=== PATIENT | female | born 1965 | race African-American/Black ===

== ENCOUNTER 2016-07-07 22:54 | Observation (INO) | payer BC ==
[~2016-07-07] VITALS: Ht 165.1 cm; Wt 97.4 kg
[~2016-07-07 22:54] MED LIST: CIPROFLOXACN500 MG PO; HYDROCHLOROT25 MG PO; METFORMIN500 MG PO; METOPROL TAR25 M1 PO; NORCO1 TA1 PO; NORVASC10 M1 PO; NORVASC10 MG PO; ULTRAM50 MG OR; ZOFRAN ODT8 MG SL
--- NOTE | 2016-07-07 22:54 | NUR ---
ARRIV[place] BY [facility] [place] TREATMENT ROOM #12. REPORTS 3/10 CHEST PAIN.
--- NOTE | 2016-07-07 23:20 | NUR ---
DR. VELEZ AT BEDSIDE TO ASSESS PT.
[2016-07-07 23:23] LABS: HEMATOCRIT 36.5 % (37.0-47.0); HEMOGLOBIN 12.2 g/dl (12.0-16.0); IMMATURE GRANULOCYTES 0.5 % (0.0-1.0); MEAN CELL VOLUME 86.1 fL CALC (80.0-100.0); MEAN CORPUSCULAR HGB 28.8 pG CALC (26.0-32.0); MEAN CORPUSCULAR HGB CONC 33.4 g/L CALC (32.0-36.0); NEUT# 6.67 thou/uL (2.00-7.15); RED BLOOD COUNT 4.24 mill/uL (4.20-5.60); RED CELL DISTRI WIDTH 14.4 % (11.5-15.5)
--- NOTE | 2016-07-07 23:25 | NUR ---
PORT CHEST IN PROGRESS.
--- NOTE | 2016-07-07 23:30 | NUR ---
PT. AMBULATORY WITH STEADY GAIT TO RESTROOM TO PROVIDE URINE SPECIMEN.
--- NOTE | 2016-07-07 23:32 | NUR ---
AMBULATORY WITH STEADY GAIT BACK TO TREATMENT ROOM FROM RESTROOM.
--- NOTE | 2016-07-07 23:38 | NUR ---
LAB AT BEDSIDE TO REDRAW PT.
[2016-07-07 23:50] LABS: URINE BILIRUBIN - DIPSTICK NEGATIVE (NEGATIVE); URINE BLOOD DIPSTICK NEGATIVE (NEGATIVE); URINE CLARITY CLEAR; URINE COLOR YELLOW; URINE GLUCOSE - DIPSTICK NEGATIVE (NEGATIVE); URINE KETONE NEGATIVE (NEGATIVE); URINE LEUK ESTERASE NEGATIVE (NEGATIVE); URINE NITRITE - DIPSTICK NEGATIVE (Negative); URINE PROTEIN - DIPSTICK NEGATIVE (NEG-TRACE); URINE SPECIFIC GRAVITY 1.025
[2016-07-08 00:01] LABS: ALBUMIN 3.8 g/dL (3.2-5.0); ALKALINE PHOSPHATASE 222 u/l (38-126); AMYLASE 64 u/l (30-110); ANION GAP 14 (6-22 (CALC)); BILIRUBIN, TOTAL 0.3 mg/dL (0.0-1.4); BUN 11 mg/dL (7-17); BUN/CREATININE RATIO 14 (12-20 (CALC)); CARBON DIOXIDE 25 mmol/l (22-30); CHLORIDE 103 mmol/l (95-108); CREATININE 0.8 mg/dL (0.5-1.0); GFR > 60 ML/MIN (>=60 (CALC)); GFR FOR AFR.AMER. > 60 ML/MIN (>=60 (CALC)); GLUCOSE 203 mg/dL (65-105); LIPASE 252 u/l (23-300); POTASSIUM 3.5 mmol/l (3.5-5.1); SGOT/AST 51 u/l (14-36); SGPT/ALT 49 u/l (9-52); SODIUM 139 mmol/l (137-146); TOTAL PROTEIN 7.3 g/dL (6.3-8.2)
--- NOTE | 2016-07-08 00:05 | NUR ---
PT. PAIN FREE AT THIS TIME. MADE AWARE.
[2016-07-08 00:13] LABS: MYOGLOBIN 21 ng/mL (0 - 62)
--- NOTE | 2016-07-08 00:30 | NUR ---
DR. VELEZ BACK AT BEDSIDE TO DISCUSS FINDINGS WITH PT.
--- NOTE | 2016-07-08 01:00 | NUR ---
REPORT TO HILLARY VICTORIA.
--- NOTE | 2016-07-08 01:25 | NUR ---
PT. TAKEN UP TO MED/SURG AT THIS TIME.
[2016-07-08 01:30] VITALS: BP 143/86
--- NOTE | 2016-07-08 01:35 | NUR ---
PT ARRIVED TO UNIT VIA WHEELCHAIR WITH LILY FLYNN. DENIES PAIN AT THIS TIME. RESPIRATIONS EVEN AND UNLABORED. ORIENTED TO ROOM. FAMILY AT BEDSIDE. PLAN OF CARE DICUSSED. PT ENCOURAGED TO VERBALIZE CONCERNS. STATES THAT SHE HAS TO GO HOME IN THE MORNING. SAFETY MEASURES IN PLACE. CALL LIGHT WITHIN REACH.
--- NOTE | 2016-07-08 04:00 | NUR ---
PT ASLEEP AT THIS TIME. NO SIGNS OF PAIN OR DISCOMFORT NOTED. MORPHINE GIVEN EARILER FOR C/O CHEST PAIN WITH GOOD EFFECT. RESPIRATIONS EVEN AND UNLABORED. SAFETY MEASURES IN PLACE. CALL LIGHT WITHIN REACH.
[2016-07-08 04:06] VITALS: BP 115/75
--- NOTE | 2016-07-08 07:00 | NUR ---
REPORT RECIEVED FROM HILLARY VICTORIA; PT RESTING IN BED; EASLIY AROUSED; PT DENIES ANY CP AT THIS TIME; TELE IN PLACE; CALL LIGHT WITHIN REACH; WILL CONTNIUE TO MONITOR
[2016-07-08 08:12] VITALS: BP 136/70
[2016-07-08] MEDS ORDERED: ATORVASTATIN CA20 MG PO (09:30)
[2016-07-08] MEDS ORDERED: BAYER CHEWABLE81 MG PO (09:30)
[2016-07-08] MEDS ORDERED: NITROSTAT0.4 MG SL (09:31)
--- NOTE | 2016-07-08 10:06 | NUR ---
Discharge instructions given. Patient verbalizes understanding of same. Discharged in stable condition via Ambulatory to Home with . All belongings sent with pt.
== END 2016-07-08 10:06 | disposition home or self-care (01) | DRG 313 ==
LOC: ENPENDDIS → ED 22:54 → ED-I 07-08 00:29 → ED 07-08 00:31 → MS2 07-08 00:32
PROVIDERS: Emergency Medicine; ADMIT Internal Medicine; ATTEND Internal Medicine
DX: R07.9 Chest pain, unspecified (principal); I25.10 Atherosclerotic heart disease of native coronary artery without angina pectoris; I10 Essential (primary) hypertension; E11.9 Type 2 diabetes mellitus without complications; I44.7 Left bundle-branch block, unspecified; Z79.84 Long term (current) use of oral hypoglycemic drugs; Z82.49 Family history of ischemic heart disease and other diseases of the circulatory system
CPT/HCPCS: G0378; J1650

== ENCOUNTER 2017-02-17 23:48 | Emergency (ER) | payer BC ==
[~2017-02-17] VITALS: Ht 165.1 cm; Wt 97.7 kg
[~2017-02-17 23:48] MED LIST changes: +AMOXICILLIN500 MG PO; +ASPIRIN LOW DOS81 M2 PO; +ATORVASTATIN CA20 MG PO; +ATORVASTATIN CA40 MG PO; +AUGMENTIN875TAB OR; +BAYER CHEWABLE81 MG PO; +HYDROCHLORO25 MG/TAB PO; +LOPRESSOR25 MG PO; +MEDDOSEPAK OR; +METO25TAB PO; +METOPROLOL SUCC25 MG PO; +NITROSTAT0.4 MG SL; +NORVASC5 M1 PO; +SUDAFED PO
[2017-02-18] MEDS ORDERED: LOSARTAN POT25 MG PO (00:22)
[2017-02-18] MEDS ORDERED: MEDDOSEPAK PO (01:28)
[2017-02-18 01:38] VITALS: BP 122/67
== END 2017-02-18 01:40 | disposition home or self-care (01) | DRG 607 ==
LOC: ED 23:48
DX: L27.2 Dermatitis due to ingested food (principal); L50.9 Urticaria, unspecified

== ENCOUNTER 2018-01-08 16:07 | Emergency (ER) | payer OTHER, BC ==
[~2018-01-08] VITALS: Ht 165.1 cm; Wt 97.0 kg
[~2018-01-08 16:07] MED LIST changes: +LOSARTAN POT25 MG PO; +MEDDOSEPAK PO
[2018-01-08 17:09] VITALS: BP 128/89
== END 2018-01-08 17:15 | disposition home or self-care (01) | DRG 951 ==
LOC: ED 16:07
DX: Z20.811 Contact with and (suspected) exposure to meningococcus (principal); Y99.0 Civilian activity done for income or pay

== ENCOUNTER 2018-12-16 11:15 | Emergency (ER) | payer BC ==
[~2018-12-16] VITALS: Ht 165.1 cm; Wt 98.6 kg
[~2018-12-16 11:15] MED LIST changes: +COZAAR100 MG PO; -LOSARTAN POT25 MG PO
[2018-12-16] MEDS ORDERED: LOPRESSOR50 M1 PO (13:45)
[2018-12-16] MEDS ORDERED: XYZAL ALLERGY 245 MG PO (13:46)
[2018-12-16] MEDS ORDERED: NITROGLYCERIN0.4 MG SL (13:48)
[2018-12-16] MEDS ORDERED: BRILINTA60 MG PO (13:48)
[2018-12-16 13:51] VITALS: BP 147/89
== END 2018-12-16 13:57 | disposition home or self-care (01) | DRG 153 ==
LOC: ED 11:15
DX: J02.9 Acute pharyngitis, unspecified (principal); R09.89 Other specified symptoms and signs involving the circulatory and respiratory systems; X58.XXXA Exposure to other specified factors, initial encounter; Y92.009 Unspecified place in unspecified non-institutional (private) residence as the place of occurrence of the external cause

== ENCOUNTER 2020-03-07 19:21 | Emergency (ER) | payer BC ==
[~2020-03-07] VITALS: Ht 165.1 cm; Wt 99.0 kg
[~2020-03-07 19:21] MED LIST changes: +BRILINTA60 MG PO; +LOPRESSOR50 M1 PO; +NITROGLYCERIN0.4 MG SL; +XYZAL ALLERGY 245 MG PO
[2020-03-07 20:20] LABS: URINE BILIRUBIN - DIPSTICK NEGATIVE (NEGATIVE); URINE BLOOD DIPSTICK TRACE-INTACT (NEGATIVE); URINE COLOR YELLOW; URINE GLUCOSE - DIPSTICK NEGATIVE (NEGATIVE); URINE KETONE NEGATIVE (NEGATIVE); URINE LEUK ESTERASE NEGATIVE (NEGATIVE); URINE NITRITE - DIPSTICK NEGATIVE (Negative); URINE PH 5.5 (4.5-8.0); URINE PROTEIN - DIPSTICK NEGATIVE (NEG-TRACE); URINE SPECIFIC GRAVITY 1.025; URINE UROBILINOGEN - DIPSTICK 0.2 E.U./dL (0.2)
[2020-03-07 20:49] LABS: HEMATOCRIT 38.9 % (37.0-47.0); HEMOGLOBIN 12.5 g/dl (12.0-16.0); IMMATURE GRANULOCYTES 0.3 % (0.0-5.0); MEAN CELL VOLUME 85.7 fL CALC (80.0-100.0); MEAN CORPUSCULAR HGB 27.5 pG CALC (26.0-32.0); MEAN CORPUSCULAR HGB CONC 32.1 g/dL CAL (32.0-36.0); NEUT# 7.06 thou/uL (2.00-7.15); RED BLOOD COUNT 4.54 mill/uL (4.20-5.60); RED CELL DISTRI WIDTH 14.6 % (11.5-15.5)
[2020-03-07 20:58] LABS: ALBUMIN 4.3 g/dL (3.2-5.0); ALKALINE PHOSPHATASE 201 u/l (38-126); AMYLASE 82 u/l (30-110); ANION GAP 9 (6-22 (CALC)); BUN 11 mg/dL (7-17); BUN/CREATININE RATIO 13 (12-20 (CALC)); CARBON DIOXIDE 30 mmol/l (22-30); CHLORIDE 105 mmol/l (95-108); CREATININE 0.9 mg/dL (0.5-1.0); GFR > 60 ML/MIN (>=60 (CALC)); GFR FOR AFR.AMER. > 60 ML/MIN (>=60 (CALC)); LIPASE 250 u/l (23-300); POTASSIUM 3.4 mmol/l (3.5-5.1); SGOT/AST 24 u/l (14-36); SODIUM 141 mmol/l (137-146); TOTAL PROTEIN 7.9 g/dL (6.3-8.2)
[2020-03-07 21:06] LABS: BILIRUBIN, TOTAL 0.5 mg/dL (0.0-1.4)
[2020-03-07 23:00] VITALS: BP 122/82
== END 2020-03-07 23:15 | disposition home or self-care (01) | DRG 392 ==
LOC: ED 19:21
PROVIDERS: Emergency Medicine
DX: R10.31 Right lower quadrant pain (principal); I10 Essential (primary) hypertension; I25.2 Old myocardial infarction
CPT/HCPCS: Q9967

== ENCOUNTER 2020-10-07 15:10 | Emergency (ER) | payer BC ==
[~2020-10-07] VITALS: Ht 165.1 cm; Wt 77.2 kg
[2020-10-07 16:02] LABS: HEMATOCRIT 42.5 % (37.0-47.0); HEMOGLOBIN 13.6 g/dl (12.0-16.0); IMMATURE GRANULOCYTES 0.2 % (0.0-5.0); MEAN CELL VOLUME 85.5 fL CALC (80.0-100.0); MEAN CORPUSCULAR HGB 27.4 pG CALC (26.0-32.0); NEUT# 7.75 thou/uL (2.00-7.15); RED BLOOD COUNT 4.97 mill/uL (4.20-5.60); RED CELL DISTRI WIDTH 13.6 % (11.5-15.5)
[2020-10-07 16:08] LABS: ALBUMIN 4.8 g/dL (3.2-5.0); ALKALINE PHOSPHATASE 182 u/l (38-126); ANION GAP 15 (6-22 (CALC)); BILIRUBIN, TOTAL 0.7 mg/dL (0.0-1.4); BUN 13 mg/dL (7-17); BUN/CREATININE RATIO 15 (12-20 (CALC)); CARBON DIOXIDE 29 mmol/l (22-30); CHLORIDE 99 mmol/l (95-108); CREATININE 0.9 mg/dL (0.5-1.0); GFR > 60 ML/MIN (>=60 (CALC)); GFR FOR AFR.AMER. > 60 ML/MIN (>=60 (CALC)); POTASSIUM 3.2 mmol/l (3.5-5.1); SODIUM 139 mmol/l (137-146); TOTAL PROTEIN 9.1 g/dL (6.3-8.2)
[2020-10-07 16:11] LABS: SGOT/AST 52 u/l (14-36)
[2020-10-07 18:10] VITALS: BP 117/69
== END 2020-10-07 17:45 | DRG 313 ==
LOC: ED 15:10
PROVIDERS: Emergency Medicine
DX: R07.9 Chest pain, unspecified (principal); I25.10 Atherosclerotic heart disease of native coronary artery without angina pectoris; I10 Essential (primary) hypertension; E78.00 Pure hypercholesterolemia, unspecified; E11.9 Type 2 diabetes mellitus without complications; I25.2 Old myocardial infarction; Z95.5 Presence of coronary angioplasty implant and graft; Z79.84 Long term (current) use of oral hypoglycemic drugs

== ENCOUNTER 2021-03-27 14:05 | Emergency (ER) | payer BC ==
[~2021-03-27] VITALS: Ht 165.1 cm; Wt 97.3 kg
[2021-03-27 14:36] LABS: URINE BILIRUBIN - DIPSTICK NEGATIVE (NEGATIVE); URINE BLOOD DIPSTICK SMALL (NEGATIVE); URINE COLOR YELLOW; URINE GLUCOSE - DIPSTICK 250 mg/dL (NEGATIVE); URINE KETONE NEGATIVE (NEGATIVE); URINE LEUK ESTERASE NEGATIVE (NEGATIVE); URINE PROTEIN - DIPSTICK NEGATIVE (NEG-TRACE); URINE UROBILINOGEN - DIPSTICK 0.2 E.U./dL (0.2)
[2021-03-27 14:37] LABS: URINE NITRITE - DIPSTICK NEGATIVE (Negative)
[2021-03-27 14:46] LABS: URINE SQUAMOUS EPITHELIAL CELL FEW EPI/hpf (0-FEW); URINE WBC 0-2 WBC/hpf (0-5)
[2021-03-27 15:25] LABS: HEMATOCRIT 38.9 % (37.0-47.0); HEMOGLOBIN 12.4 g/dl (12.0-16.0); IMMATURE GRANULOCYTES 0.3 % (0.0-5.0); MEAN CELL VOLUME 86.4 fL CALC (80.0-100.0); MEAN CORPUSCULAR HGB 27.6 pG CALC (26.0-32.0); MEAN CORPUSCULAR HGB CONC 31.9 g/dL CAL (32.0-36.0); NEUT# 4.9 thou/uL (2.00-7.15); RED BLOOD COUNT 4.5 mill/uL (4.20-5.60); RED CELL DISTRI WIDTH 14.4 % (11.5-15.5)
[2021-03-27 15:37] LABS: ALBUMIN 4.1 g/dL (3.2-5.0); ALKALINE PHOSPHATASE 251 u/l (38-126); ANION GAP 8 (6-22 (CALC)); BILIRUBIN, TOTAL 0.9 mg/dL (0.0-1.4); BUN 12 mg/dL (7-17); BUN/CREATININE RATIO 15 (12-20 (CALC)); CARBON DIOXIDE 30 mmol/l (22-30); CHLORIDE 107 mmol/l (95-108); CREATININE 0.8 mg/dL (0.5-1.0); GFR > 60 ML/MIN (>=60 (CALC)); GFR FOR AFR.AMER. > 60 ML/MIN (>=60 (CALC)); LIPASE 238 u/l (23-300); POTASSIUM 3.3 mmol/l (3.5-5.1); SGOT/AST 37 u/l (14-36); SODIUM 141 mmol/l (137-146); TOTAL PROTEIN 7.6 g/dL (6.3-8.2)
[2021-03-27] MEDS ORDERED: TRAMADOL HYDROC50 M1 PO (17:42)
[2021-03-27 18:03] VITALS: BP 149/67
== END 2021-03-27 18:04 | disposition home or self-care (01) | DRG 392 ==
LOC: ED 14:05
PROVIDERS: Family Medicine
DX: R10.11 Right upper quadrant pain (principal); I10 Essential (primary) hypertension; E11.9 Type 2 diabetes mellitus without complications; I25.2 Old myocardial infarction; E78.00 Pure hypercholesterolemia, unspecified; Z79.84 Long term (current) use of oral hypoglycemic drugs

== ENCOUNTER 2022-05-30 16:31 | Emergency (ER) | payer BC ==
[~2022-05-30] VITALS: Ht 165.1 cm; Wt 95.0 kg
[~2022-05-30 16:31] MED LIST changes: +TRAMADOL HYDROC50 M1 PO
[2022-05-30 16:53] VITALS: BP 127/78
[2022-05-30 17:01] VITALS: BP 112/63
[2022-05-30 17:16] LABS: BASO% 0.1 % (0-3); EOS% 0.9 % (0-8); HEMATOCRIT 42.9 % (37.0-47.0); HEMOGLOBIN 13.8 g/dl (12.0-16.0); IMMATURE GRANULOCYTES 0.1 % (0.0-5.0); LYMPH% 16.4 % (15-41); MEAN CELL VOLUME 85.1 fL CALC (80.0-100.0); MEAN CORPUSCULAR HGB 27.4 pG CALC (26.0-32.0); MEAN CORPUSCULAR HGB CONC 32.2 g/dL CAL (32.0-36.0); MONO% 5.6 % (2-13); NEUT# 10.76 thou/uL (2.00-7.15); NEUT% 76.9 % (42-76); RED BLOOD COUNT 5.04 mill/uL (4.20-5.60); RED CELL DISTRI WIDTH 13.6 % (11.5-15.5)
[2022-05-30 17:24] VITALS: BP 115/74
[2022-05-30 17:44] LABS: ALBUMIN 4.8 g/dL (3.2-5.0); ALKALINE PHOSPHATASE 222 u/l (38-126); ANION GAP 14 (6-22 (CALC)); BILIRUBIN, TOTAL 0.6 mg/dL (0.02-1.3); BUN 13 mg/dL (7-17); BUN/CREATININE RATIO 14 (12-20 (CALC)); CARBON DIOXIDE 25 mmol/l (22-30); CHLORIDE 103 mmol/l (95-108); CREATININE 0.9 mg/dL (0.5-1.0); GFR FOR AFR.AMER. > 60 ML/MIN (>=60 (CALC)); GFR OTHER RACES > 60 ML/MIN (>=60 (CALC)); LIPASE 350 u/l (23-300); POTASSIUM 3.3 mmol/l (3.5-5.1); SGOT/AST 30 u/l (14-36); SODIUM 140 mmol/l (137-146); TOTAL PROTEIN 8.2 g/dL (6.3-8.2)
[2022-05-30 17:45] VITALS: BP 107/68
[2022-05-30 18:00] VITALS: BP 103/67
[2022-05-30 19:26] LABS: URINE BILIRUBIN - DIPSTICK NEGATIVE (NEGATIVE); URINE BLOOD DIPSTICK TRACE-LYSED (NEGATIVE); URINE COLOR YELLOW; URINE GLUCOSE - DIPSTICK NEGATIVE (NEGATIVE); URINE KETONE NEGATIVE (NEGATIVE); URINE PH 5.5 (4.5-8.0); URINE PROTEIN - DIPSTICK NEGATIVE (NEG-TRACE); URINE UROBILINOGEN - DIPSTICK 0.2 E.U./dL (0.2)
[2022-05-30 19:32] LABS: URINE LEUK ESTERASE SMALL (NEGATIVE); URINE NITRITE - DIPSTICK NEGATIVE (Negative)
[2022-05-30 19:37] LABS: URINE RBC 0-2 RBC/hpf (0-5); URINE SQUAMOUS EPITHELIAL CELL FEW EPI/hpf (0-FEW)
[2022-05-30 20:43] VITALS: BP 103/67
[2022-05-30] MEDS ORDERED: ONDANSETRON4 MG PO (20:51)
== END 2022-05-30 21:15 | disposition home or self-care (01) | DRG 392 ==
LOC: ED 16:31
PROVIDERS: Family Medicine
DX: K52.9 Noninfective gastroenteritis and colitis, unspecified (principal); R10.9 Unspecified abdominal pain; E11.9 Type 2 diabetes mellitus without complications; I10 Essential (primary) hypertension; Z79.84 Long term (current) use of oral hypoglycemic drugs; I25.2 Old myocardial infarction